=== PATIENT | male | born 1975 | race Caucasian/White ===

== ENCOUNTER 2020-06-19 18:06 | Emergency (ER) | payer OTHER ==
[~2020-06-19] VITALS: Ht 185.4 cm; Wt 99.8 kg
== END 2020-06-19 23:06 | disposition home or self-care (01) ==
LOC: ER 18:06
DX: S62.396A Other fracture of fifth metacarpal bone, right hand, initial encounter for closed fracture (principal); G89.11 Acute pain due to trauma; M25.531 Pain in right wrist; W22.8XXA Striking against or struck by other objects, initial encounter; Y93.89 Activity, other specified; Y92.098 Other place in other non-institutional residence as the place of occurrence of the external cause; Y99.8 Other external cause status

== ENCOUNTER 2025-01-04 03:19 | Emergency (ER) | payer OTHER ==
[~2025-01-04] VITALS: Ht 185.4 cm; Wt 95.3 kg
[2025-01-04] MEDS ORDERED: LIDOCAINE HCL 1% 10ML VIAL ONE (03:38)
[2025-01-04 03:41] VITALS: BP 105/55; O2SAT 97
[2025-01-04] MEDS ORDERED: TETANUS & DIPHTHERIA TOX,ADULT 0.5 ML VIAL IM STA (05:27)
[2025-01-04] MEDS ORDERED: DIPHTH,PERTUSS(ACELL),TET VAC 0.5 ML SYRINGE IM ONE (05:28)
[2025-01-04] MEDS ORDERED: CEPHALEXIN500 MG PO (05:29)
== END 2025-01-04 05:37 ==
LOC: ER
DX: S51.822A Laceration with foreign body of left forearm, initial encounter (principal); W25.XXXA Contact with sharp glass, initial encounter; Y93.89 Activity, other specified; Y92.89 Other specified places as the place of occurrence of the external cause; Z91.013 Allergy to seafood
CPT/HCPCS: 12004; 90471; 90714; J1670